=== PATIENT | male | born 1995 | race African-American/Black ===

== ENCOUNTER 2023-01-03 10:34 | Emergency (ER) | payer OTHER ==
[~2023-01-03] VITALS: Ht 184.2 cm; Wt 73.6 kg
[2023-01-03 10:40] VITALS: TEMP 97.9
[2023-01-03] MEDS ORDERED: IPRATROPIUM BROMIDE 0.5 MG/2.5 ML NEB SOLUTION NEB ONE (10:45)
[2023-01-03] MEDS ORDERED: MethylPREDNISolone SOD SUCC 125 MG/2 ML VIAL IVP ONE (10:45)
[2023-01-03] MEDS ORDERED: ALBUTEROL SULFATE 2.5 MG/0.5 ML 5 ML NEB SOLUTION NEB ONE (10:45)
[2023-01-03] MEDS ORDERED: 0.9% SODIUM CHLORIDE 5 ML NEB SOLUTION NEB ONE (10:53)
[2023-01-03 11:00] VITALS: PULSE 72; RESP 24; O2SAT 98
[2023-01-03 12:05] VITALS: PULSE 103; RESP 20; O2SAT 100
[2023-01-03 12:34] VITALS: BP 126/82; PULSE 84; RESP 18
[2023-01-03] MEDS ORDERED: ALBUTEROL SULFATE HFA 90 MCG/PUFF 8 GM INHALER IH ONE ×2 (12:45)
[2023-01-03] MEDS ORDERED: PRED-554 PO (13:04)
== END 2023-01-03 14:17 | disposition home or self-care (01) ==
LOC: EMS 10:35
DX: J45.909 Unspecified asthma, uncomplicated (principal)
CPT/HCPCS: 99285; 96374; 94640; J2930; Q9967; J3535; 94644

== ENCOUNTER 2023-02-03 10:52 | Emergency (ER) | payer OTHER ==
[~2023-02-03] VITALS: Ht 182.9 cm; Wt 70.5 kg
[~2023-02-03 10:52] MED LIST: PRED-554 PO
[2023-02-03 10:53] VITALS: BP 142/98; PULSE 98; RESP 22; TEMP 98.8
[2023-02-03] MEDS ORDERED: ALBU18HF12 PO (10:55)
[2023-02-03] MEDS ORDERED: ALBU90AE IH (10:55)
== END 2023-02-03 12:54 | disposition left against medical advice (07) ==
LOC: EMS 10:52
DX: J45.901 Unspecified asthma with (acute) exacerbation (principal); Z53.21 Procedure and treatment not carried out due to patient leaving prior to being seen by health care provider
CPT/HCPCS: 99281; Z7502

== ENCOUNTER 2023-08-08 16:30 | Emergency (ER) | payer OTHER ==
[~2023-08-08] VITALS: Ht 182.9 cm; Wt 72.7 kg
[~2023-08-08 16:30] MED LIST changes: +ALBU90AE IH; -PRED-554 PO
[2023-08-08] MEDS ORDERED: MONT-35 PO (16:34)
[2023-08-08] MEDS ORDERED: ALBU18HF12 IH ×2 (16:34→18:05)
[2023-08-08 16:35] VITALS: TEMP 97.9
[2023-08-08 16:51] VITALS: PULSE 85; RESP 24; O2SAT 98
[2023-08-08] MEDS: ALBUTEROL SULFATE 2.5 MG/0.5 ML NEB SOLUTION NEB ONE (16:51)
[2023-08-08] MEDS: IPRATROPIUM BROMIDE 0.5 MG/2.5 ML NEB SOLUTION NEB ONE (16:51)
[2023-08-08 17:06] VITALS: PULSE 89; RESP 22; O2SAT 98
[2023-08-08] MEDS: PredniSONE 20 MG TABLET PO ONE (17:18)
[2023-08-08 17:55] VITALS: BP 126/70; PULSE 70; RESP 19
[2023-08-08] MEDS ORDERED: PRED-554 PO (18:06)
== END 2023-08-08 18:30 | disposition home or self-care (01) ==
LOC: EMS 16:42
DX: J45.909 Unspecified asthma, uncomplicated (principal); F32.A Depression, unspecified
CPT/HCPCS: 99283; 94640; J7512